=== PATIENT | female | born 1935 | race Caucasian/White ===

== ENCOUNTER → 2016-09-20 | Outpatient (CLI) | payer MEDICARE ==
--- NOTE | 2016-09-20 16:31 | CT ---
EXAMINATION TYPE: CT brain wo con DATE OF EXAM: 09/20/2016 3:10 PM COMPARISON: MRI brain 02/23/2015 INDICATION: Right sided headache DLP: 1072.3 mGycm, Automated exposure control for dose reduction was used. CONTRAST: None CT of the brain is performed utilizing 3 mm thick sections through the posterior fossa and 3 mm thick sections through the remaining calvarium. Study is performed within 24 hours of arrival to the hosp [facility]. No abnormal hyperdensity is present to suggest an acute intracranial hemorrhage. No mass lesion is evident. No acute infarcts are evident. Encephalomalacia changes and subcortical white matter changes in the r ight parietal lobe are stable from the MRI of 2014. Periventricular white matter changes are present which were also present on the MRI of 2014. Ventricles and sulci are prominent for the patient age, greater adjacent to the encephalomalacia and craniotomy. Paranasal sinuses and mastoid air cells within the [id number] are clear. IMPRESSIONS: 1. Postsurgical changes right parietal region. Findings appear stable from the prior MRI. No acute intracranial changes are evident. 2. Age-related atrophy with periventricular white matter changes.
== END | disposition home or self-care (01) ==
LOC: RADCTMAIN 14:38
PROVIDERS: ATTEND Family Medicine
DX: D49.6 Neoplasm of unspecified behavior of brain (principal); G31.1 Senile degeneration of brain, not elsewhere classified; R90.82 White matter disease, unspecified; Z98.890 Other specified postprocedural states
CPT/HCPCS: 70450

== ENCOUNTER → 2017-02-04 | Outpatient (CLI) | payer MEDICARE ==
--- NOTE | 2017-02-04 11:22 | XR ---
EXAMINATION TYPE: XR chest 2V DATE OF EXAM: 02/04/2017 COMPARISON: 06/08/2015 TECHNIQUE: PA and lateral views submitted. HISTORY: Cough FINDINGS: The lungs are clear and there is no pneumothorax, pleural effusion, or focal pneumonia. Atheroscler otic change aorta. No overt failure. IMPRESSION: 1. No acute process.
== END | disposition home or self-care (01) ==
LOC: RADXRMAIN 10:55
PROVIDERS: ATTEND Family Medicine
DX: R05 Cough (principal)
CPT/HCPCS: 71020

== ENCOUNTER → 2017-04-26 | Outpatient (CLI) | payer MEDICARE ==
--- NOTE | 2017-04-26 11:35 | XR ---
Lumbar spine INDICATION: Pain TECHNIQUE: Three-view lumbar spine FINDINGS: There 5 lumbar-type vertebral bodies. Mild scoliosis is present with convexity to the left. There is attempted sacralization of L5. There is loss of disc height posteriorly L4-5. Posterior L3-4 disc hei ght loss may be present. Vacuum disc phenomenon is present L2-3 with narrowing of the disc height. Va scular calcifications within the aorta IMPRESSIONS: 1. Degenerative disc changes
== END ==
LOC: RADXRMAIN 11:00
PROVIDERS: ATTEND Physician Assistant
DX: M51.36 Other intervertebral disc degeneration, lumbar region (principal)
CPT/HCPCS: 72100

== ENCOUNTER → 2017-12-18 | Outpatient (CLI) | payer MEDICARE ==
--- NOTE | 2017-12-18 21:17 | MR ---
EXAMINATION TYPE: MR brain wo/w con DATE OF EXAM: 12/18/2017 COMPARISON: 02/23/2015 HISTORY: Tumor removed, recheck CONTRAST: Performed utilizing 12 mL intravenous Gadavist gadolinium contrast. TECHNIQUE: Multiplanar, multiecho imaging on a 3.0 Paz magnet is performed through the brain. Stud y is performed within 24 hours of arrival to the hospital. The craniovertebral junction is normal. There is poor visualization of the pituitary. There may be an empty sella. This is unchanged from prior study. Diffusion-weighted imaging is performed. No abnormal hyperintensity is present to suggest an acute i ntracranial infarct or acute ischemic change. Postsurgical changes are in the right parietal lobe. There are some periventricular white matter hype rintensity likely on the basis of chronic white matter ischemic changes. White matter changes in the right parietal lobe are likely related to postsurgical change. There is some ischemic type white carrillo er change in the brainstem. Some subcortical white matter changes noted in the right temporal lobe an teriorly. Distribution appears unchanged. Ventricles and sulci are prominent for the patient age. No abnormal enhancement is evident. No enhancement at the surgery bed is identified. There is some mi ld ex vacuo effect noted on the right lateral ventricle. IMPRESSIONS: 1. Postsurgical changes right parietal lobe appears stable from prior study. No suspicious findings o f the surgery bed. 2. Periventricular white matter ischemic type changes.
== END | disposition home or self-care (01) ==
LOC: RADMRIMAIN 15:50
PROVIDERS: ATTEND Family Medicine
DX: D49.6 Neoplasm of unspecified behavior of brain (principal); R90.89 Other abnormal findings on diagnostic imaging of central nervous system; Z98.890 Other specified postprocedural states
CPT/HCPCS: 70553; A9581

== ENCOUNTER → 2018-03-07 | Outpatient (CLI) | payer MEDICARE ==
--- NOTE | 2018-03-07 08:51 | US ---
EXAMINATION TYPE: US duplex aorta DATE OF EXAM: 03/07/2018 COMPARISON: X ray spine 2014 CLINICAL HISTORY: I70.0 Atherosclerosis of the aorta; HT5'5, WT 275lbs EXAM MEASUREMENTS: Abdominal Aorta: Proximal: 2.5 cm A/P Mid: 1.8cm Transverse Distal: 1.6cm Transverse Bifurcation: 1.2cm A/P Right OPAL; 1.1cm A/P Left OPAL Hyperechoic intimal wall changes are noted throughout aorta and into common iliac arteries.. IMPRESSION: Visualized portions of the abdominal aorta demonstrate no evidence of abdominal aortic an eurysm. Atherosclerosis of the abdominal aorta and its visualized proximal branches appears moderate.
== END | disposition home or self-care (01) ==
LOC: RADUSWWP 07:32
PROVIDERS: ATTEND Family Medicine
DX: I70.0 Atherosclerosis of aorta (principal)
CPT/HCPCS: 93979

== ENCOUNTER → 2018-03-26 | Outpatient (CLI) | payer MEDICARE ==
--- NOTE | 2018-03-26 11:00 | XR ---
EXAMINATION TYPE: XR shoulder complete RT DATE OF EXAM: 03/26/2018 CLINICAL HISTORY: Right shoulder pain TECHNIQUE: Three views of the right shoulder are obtained. COMPARISON: None. FINDINGS: There is no acute fracture/dislocation evident in the right shoulder. The acromioclavicul ar and glenohumeral joint spaces demonstrate arthropathy. There is mild glenohumeral arthropathy with small inferior glenoid osteophyte, mild joint space narrowing, and subchondral cysts at the insertio n of the rotator cuff at the greater tuberosity. With regards to the acromioclavicular joint there ar e marginal osteophytes, capsular hypertrophy, and joint space narrowing. The visualized ribs are int act and unremarkable. IMPRESSION: There is no acute fracture or dislocation in the right shoulder. Moderate acromioclavicu lar arthropathy and mild glenohumeral arthropathy.
--- NOTE | 2018-03-26 12:37 | MR ---
EXAMINATION TYPE: MR shoulder RT wo con DATE OF EXAM: 03/26/2018 COMPARISON: X-ray 03/26/2018 HISTORY: Pain in right shoulder TECHNIQUE: Multiplanar, multisequence imaging of the right shoulder is performed without contrast. FINDINGS: There is hypertrophy and arthropathy of the AC joint. There is mass effect upon the supraspinatus ten don and muscle. There is a degree of atrophy involving the subscapularis, supraspinatus and infraspinatus muscles. There is diffuse abnormal signal and thickening of the distal margin of the supraspinatus tendon exte nding a length of 2 cm in AP dimension of 1.1 cm compatible with severe tendinopathy and partial tear . There is a small through thickness tear at the insertion involving the anterior fibers measuring ap proximately 7 mm. There is marked thickening and increased signal near the distal margin of the infraspinatus tendon co mpatible severe tendinosis and partial intrasubstance tear. Biceps tendon is well situated within the bicipital groove. Biceps tendon is intact within the rotato r interval and to the level the biceps anchor. There is mild narrowing of the glenohumeral joint but no evidence of erosive change or sizable joint effusion glenohumeral ligaments appear to be intact. Bony labrum intact. IMPRESSION: 1. Diffuse tendinopathy involving the distal margin of the supraspinatus and infraspinatus tendons co mpatible with severe tendinosis and partial intrasubstance tears. There is an 8 mm through thickness tear involving the anterior fibers of the supraspinatus tendon. No retraction. 2. AC joint arthropathy with impingement.
== END | disposition home or self-care (01) ==
LOC: RADMRIMAIN 10:21
PROVIDERS: ATTEND Midwife
DX: M25.511 Pain in right shoulder (principal); M12.811 Other specific arthropathies, not elsewhere classified, right shoulder

== ENCOUNTER → 2018-09-11 | Outpatient (CLI) | payer MEDICARE ==
--- NOTE | 2018-09-11 15:54 | US ---
EXAMINATION TYPE: US carotid duplex BILAT DATE OF EXAM: 09/11/2018 COMPARISON: NONE CLINICAL HISTORY: R55 Syncope. Syncope EXAM MEASUREMENTS: RIGHT: Peak Systolic Velocity (PSV) cm/sec ----- Right CCA: 85.3 ----- Right ICA: 102.9 ----- Right ECA: 104.0 ICA/CCA ratio: 1.2 RIGHT: End Diastole cm/sec ----- Right CCA: 12.8 ----- Right ICA: 23.7 ----- Right ECA: 10.6 LEFT: Peak Systolic Velocity (PSV) cm/sec ----- Left CCA: 90.9 ----- Left ICA: 103.0 ----- Left ECA: 149.6 ICA/CCA ratio: 1.1 LEFT: End Diastole cm/sec ----- Left CCA: 10.6 ----- Left ICA: 27.1 ----- Left ECA: 13.9 VERTEBRALS (direction of flow): Right Vertebral: Antegrade Left Vertebral: Antegrade Rhythm: Normal Mild plaque right bifurcation. Moderate plaque left bifurcation. Increased velocities left ECA indica ting approximately 50% stenosis Incidental finding: thyroid nodules right lobe with largest = 2.9cm IMPRESSION: 1. Mild degree of grayscale atheromatous plaquing with no sonographically evident hemodynamically sig nificant stenosis within either visualized carotid arterial system. 2. Incidentally noted 2.9 cm right thyroid nodule and smaller right thyroid nodules for which full ch aracterization with thyroid ultrasound is recommended. 2. Approximately 50% stenosis in the left external carotid artery. Criteria for Assigning % of Stenosis / Diameter reduction (Estimation based on the indirect measurements of the internal carotid artery velocities (ICA PSV). 1. Normal (no stenosis)=ICA PSV < 125 cm/s: ratio < 2.0: ICA EDV<40 cm/s. 2. Less than 50% stenosis=ICA PSV < 125 cm/s: ratio < 2.0: ICA EDV<40 cm/s. 3. 50 to 69% stenosis=ICA PSV of 125 to 230 cm/s: ration 2.0 ? 4.0: ICA EDV 40-100 cm/s. 4. Greater than 70% stenosis to near occlusion= ICA PSV > 230 cm/s: ratio > 4.0: ICA EDV > 100 cm/s. 5. Near occlusion= ICA PSV velocities may be low or undetectable: variable ratio and ICA EDV. 6. Total occlusion=unable to detect flow.
== END | disposition home or self-care (01) ==
LOC: RADUSWWP 14:47
PROVIDERS: ATTEND Family Medicine
DX: I65.22 Occlusion and stenosis of left carotid artery (principal); I67.2 Cerebral atherosclerosis
CPT/HCPCS: 93880

== ENCOUNTER → 2018-09-16 | Day surgery (SDC) | payer MEDICARE ==
[2018-09-11 13:27] VITALS: BMI 45.7
[~2018-09-16] MED LIST: SODIUM CHLORIDE 0.9% 1,000 ML IV SCH
[2018-09-16 10:29] VITALS: BP 133/67; PULSE 74; RESP 18; TEMP 98.3
--- NOTE | 2018-09-16 16:19 | P.PCN ---
Preoperative Diagnosis: Diagnosis Recurrent syncope Twelve-lead ECG shows Sinus rhythm normal MN narrow QRS nonspecific rigidity abnormalities with the 0.5 mm J-point elevation no delta waves normal QT interval Tilt table test for protocol Baseline blood pressure 140/59 mmHg Baseline heart rate 50 beats a minute Patient was tilted upright at an angle of 70 per protocol there was a drop in blood pressure during tilt table test which was progressive and once the patient 's blood pressure ranged 65 mmHg she became syncopal. 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
== END | disposition home or self-care (01) ==
LOC: CATHEP 09:48
PROVIDERS: ATTEND Internal Medicine Clinical Cardiac Electrophysiology
DX: I95.1 Orthostatic hypotension (principal); I10 Essential (primary) hypertension; E78.2 Mixed hyperlipidemia; R06.00 Dyspnea, unspecified; Z79.82 Long term (current) use of aspirin; Z72.0 Tobacco use; Z79.899 Other long term (current) drug therapy
CPT/HCPCS: 93660

== ENCOUNTER → 2018-09-30 | Outpatient (CLI) | payer MEDICARE ==
--- NOTE | 2018-09-30 15:27 | US ---
EXAMINATION TYPE: US thyroid st tissue head/neck DATE OF EXAM: 09/30/2018 COMPARISON: NONE CLINICAL HISTORY: E04.1 THYROID NODULE. GLAND SIZE: Right Lobe: 4.2 x 2.6 x 2.6 cm Overall Parenchyma: heterogenous Left Lobe: 5.2 x 1.7 x 1.7 cm Overall Parenchyma: heterogeneous Isthmus Thickness: 0.2 cm NODULES RIGHT: # of nodules measured on right: 2 1. 2.1 X 1.0 x 1.3 cm hypoechoic solid nodule at the upper pole with well-defined margins. This no dule is wider than tall and shows intranodular vascularity. Prior size: no prior 2. 2.5 X 1.9 x 2.5 cm echogenic solid nodule at the lower pole with well-defined margins. This nodu le is wider than tall and shows intranodular vascularity. Prior size: no prior LEFT: # of nodules measured on left: 0 ISTHMUS: # of nodules measured in the isthmus: 0 Bilateral neck scanned, no evidence of lymphadenopathy. Rt lobe shows no normal tissue, appears as multinodular goiter with two distinct nodules. IMPRESSION: 1. Enlarged nodules right lobe thyroid
== END | disposition home or self-care (01) ==
LOC: RADUSWWP 14:32
PROVIDERS: ATTEND Family Medicine
DX: E04.2 Nontoxic multinodular goiter (principal)
CPT/HCPCS: 76536

== ENCOUNTER 2018-11-21 08:37 | Day surgery (SDC) | payer MEDICARE ==
[2018-11-21 09:06] VITALS: RESP 18
[2018-11-21] MEDS ORDERED: ALPRAZolam 0.25 MG TAB PO STA (09:12)
[2018-11-21 10:21] VITALS: TEMP 97.7
[2018-11-21 10:57] VITALS: BP 147/67; PULSE 55
== END 2018-11-21 10:58 | disposition home or self-care (01) ==
LOC: RADPROMAIN 08:37
PROVIDERS: ATTEND Surgery Plastic and Reconstructive Surgery
DX: E04.1 Nontoxic single thyroid nodule (principal)
CPT/HCPCS: 10005; 10006; 88173; 88305

== ENCOUNTER → 2018-11-21 | Outpatient (CLI) | payer MEDICARE ==
[2018-11-21 11:55] LABS: Albumin 3.5 g/dL (3.80-4.90); Albumin/Globulin Ratio 1.59 (1.60-3.17); Anion Gap 9.9 mmol/L (4.00-12.00); Calcium 8.8 mg/dL (8.7-10.3); Carbon Dioxide 28.1 mmol/L (21.6-31.8); Globulin 2.2 g/dL (1.6-3.3); Total Bilirubin 0.3 mg/dL (0.2-1.2); Total Protein 5.7 g/dL (6.2-8.2)
[2018-11-21 12:03] LABS: T4, Free (Free Thyroxine) 1.2 ng/dL (0.80-1.80)
--- NOTE | 2018-11-21 12:28 | US ---
ULTRASOUND GUIDED FNA THYROID BIOPSY: CLINICAL HISTORY: Request for 2 right-sided thyroid nodule for FNA FINDINGS: The procedure was explained to the patient. The risks, complications, benefits and alternatives were discussed and any questions were answered. Informed consent was obtained. Patient was placed supin e on the ultrasound table and prepped and draped in the usual sterile fashion. Utilizing a 25 gauge needle, five passes were made into the requested 2 right-sided thyroid nodules. Patient was stable throughout the procedure. Pathology is pending. All elements of maximal barrier technique were utilized. IMPRESSION: 1. Successful ultrasound guided FNA thyroid biopsy.
[2018-11-21 15:20] LABS: Hemoglobin A1C 5.5 % (4.0-6.0)
== END ==
LOC: LABWHC1 08:07
PROVIDERS: ATTEND Family Medicine
DX: E04.1 Nontoxic single thyroid nodule (principal); R73.9 Hyperglycemia, unspecified
CPT/HCPCS: 10006; 36415; 80053; 83036; 84439; 84443; 84481

== ENCOUNTER → 2018-11-28 | Outpatient (CLI) | payer MEDICARE ==
--- NOTE | 2018-11-28 08:46 | US ---
EXAMINATION TYPE: US abdomen complete DATE OF EXAM: 11/28/2018 COMPARISON: NONE CLINICAL HISTORY: R10.13 EPIGASTRIC PAIN. EXAM MEASUREMENTS: Liver Length: 15.4 cm Gallbladder Wall: 0.2 cm CBD: 0.4 cm Spleen: 9.6 cm Right Kidney: 10.1 x 5.5 x 5.2 cm Left Kidney: 10.5 x 5.4 x 5.3 cm Pancreas: Partially Obscured by bowel gas. ? hypoechoic area body of pancreas = 0.8 x 0.7 x 0.4 cm Liver: No obvious masses seen. Partially obscured by bowel gas. There is poor penetration by the ult rasound beam. Gallbladder: No stones seen Evidence for sonographic Herrera's sign: No CBD: wnl Spleen: wnl Right Kidney: wnl Left Kidney: There is hypoechoic appearance, questionable decreased echogenicity of renal pelvis Upper IVC: wnl Abd Aorta: wnl Suboptimal exam overall due to large amounts of bowel gas. There is no ascites. IMPRESSION: Correlate for possible hepatic steatosis, hepatocellular disease. Question abnormal left renal pelvis. Questionable heterogeneity in the head of the pancreas. Contrast enhanced CT scan of th e abdomen and pelvis may be of benefit.
== END ==
LOC: RADUSWWP 07:43
PROVIDERS: ATTEND Family Medicine
DX: R10.13 Epigastric pain (principal); K52.1 Toxic gastroenteritis and colitis
CPT/HCPCS: 76700

== ENCOUNTER → 2018-12-11 | Outpatient (CLI) | payer MEDICARE ==
--- NOTE | 2018-12-11 14:27 | CT ---
EXAMINATION TYPE: CT abdomen w con DATE OF EXAM: 12/11/2018 COMPARISON: None HISTORY: disorders of kidney, ureters CT DLP: 1065.7 mGycm CONTRAST: CT scan of the abdomen is performed without Oral Contrast and with IV Contrast, patient injected wit h 50 mL of Isovue 300. FINDINGS: LUNG BASES-: No visible nodule. No infiltrate. LIVER/GB: Small gallstones identified. No wall thickening noted at this time. No space occupying h epatic lesion. Biliary tree is of normal caliber. PANCREAS: No inflammation. No distinct mass. SPLEEN: No splenic enlargement. No lesion seen. ADRENALS: No nodule. No thickening. KIDNEYS/BLADDER: No hydronephrosis. No nephrolithiasis. No distinct renal mass. Urinary bladder g rossly unremarkable. BOWEL: The appendix is not clearly visualized. There is wall thickening of the proximal transverse co leslie which may reflect colitis. No evidence for perforation or abscess. Mild small bowel ileus. LYMPH NODES: No greater than 1cm abdominal or pelvic lymph nodes are appreciated. AORTA: No significant abnormality. OSSEOUS STRUCTURES: Severe degenerative changes at L2-3. OTHER: No significant additional abnormality is seen. IMPRESSION: 1. There is wall thickening of the proximal transverse colon which may reflect colitis. 2. Cholelithiasis.
== END | disposition home or self-care (01) ==
LOC: RADCTMAIN 13:03
PROVIDERS: ATTEND Family Medicine
DX: K80.20 Calculus of gallbladder without cholecystitis without obstruction (principal); N28.89 Other specified disorders of kidney and ureter
CPT/HCPCS: 82565; 84520; 74160; 36415; Q9967

== ENCOUNTER → 2018-12-23 | Outpatient (CLI) | payer MEDICARE | END | disposition home or self-care (01) | LOC: LABWHC1 13:37 | PROVIDERS: ATTEND Internal Medicine Gastroenterology | DX: R19.7 Diarrhea, unspecified (principal) | CPT/HCPCS: 83630; 87045; 87046; 87324; 87328; 87329 ==

== ENCOUNTER 2019-01-16 10:17 | Day surgery (SDC) | payer MEDICARE ==
[2019-01-14 17:10] VITALS: BMI 40.4
[~2019-01-16 10:17] MED LIST changes: +LACTATED RINGERS 1,000 ML IV SCH; -SODIUM CHLORIDE 0.9% 1,000 ML IV SCH
[2019-01-16 10:41] VITALS: RESP 16; TEMP 97.1
[2019-01-16] MEDS ORDERED: PROPOFOL 10 MG/ML 20 ML VIAL IV ONE (10:58)
--- NOTE | 2019-01-16 11:17 | P.PCN ---
Date of Procedure: 01/16/19 Procedure(s) Performed: BRIEF HISTORY: Patient is a 83-year-old pleasant white female scheduled for an elective colonoscopy as a part of evaluation of chronic diarrhea for the last 5 weeks duration. She has bowel movements anywhere from 5-10 a day which are loose to watery in consistency but no blood and mucus in the stool. She was tried on Imodium and Bentyl with no help. Stool studies were negative. Computed tomography scan of abdomen revealed thickening of the left colon. Hence scheduled for colonoscopy to evaluate further. PROCEDURE PERFORMED: Colonoscopy random biopsies. PREOPERATIVE DIAGNOSIS: Chronic diarrhea 5 years duration. IV sedation per Anesthesia. PROCEDURE: After informed consent was obtained, the patient, was brought into the endoscopy unit. IV sedation was administered by Anesthesia under continuous monitoring. Digital rectal examination was normal. Initially the Olympus CF-160 flexible video colonoscope was then inserted in the rectum, gradually advanced into the cecum without any difficulty. Careful examination was performed as the scope was gradually being withdrawn. Ileocecal valve and the appendiceal orifice were visualized and appeared normal. Prep was excellent. Mucosa of the cecum, ascending colon, transverse colon, descending colon appeared normal. There was mild mucosal erythema and friability noted in the, sigmoid colon, and rectum and multiple biopsies were done from this area.. Retroflexion was performed in the rectum and no lesions were seen. The patient tolerated the procedure well. IMPRESSION: Mucosal erythema and friability noted in the proximal rectum and the sigmoid colon suspicious for inflammatory bowel disease Rest of the colon appeared normal RECOMMENDATIONS: Findings of this examination were discussed with the patient the lesser family. She was advised to follow up in office in one to 2 weeks to discuss the biopsy results..
[2019-01-16 11:48] VITALS: BP 123/74; PULSE 61
== END 2019-01-16 12:06 | disposition home or self-care (01) ==
LOC: ORWHC2ENDO 10:17
PROVIDERS: ATTEND Internal Medicine Gastroenterology
DX: K52.9 Noninfective gastroenteritis and colitis, unspecified (principal); K62.89 Other specified diseases of anus and rectum; H91.90 Unspecified hearing loss, unspecified ear; R41.3 Other amnesia; E07.9 Disorder of thyroid, unspecified; J44.9 Chronic obstructive pulmonary disease, unspecified; I10 Essential (primary) hypertension; E78.5 Hyperlipidemia, unspecified; Z79.82 Long term (current) use of aspirin; Z79.890 Hormone replacement therapy; Z79.899 Other long term (current) drug therapy
CPT/HCPCS: 88305; 45380; J2704

== ENCOUNTER 2019-01-22 00:19 | Inpatient (IN) | payer MEDICARE ==
[2019-01-22] MEDS ORDERED: SODIUM CHLORIDE 0.9% 1,000 ML IV STA (00:40)
--- NOTE | 2019-01-22 01:05 | ED ---
Weakness HPI - General Chief complaint: Syncope Stated complaint: Fall,weak Time Seen by Provider: 01/22/19 00:23 Source: patient, family, EMS, RN notes reviewed, old records reviewed Mode of arrival: EMS Limitations: no limitations - History of Present Illness Initial comments: This is an 80-year-old female the ER for evaluation. Patient coming in for evaluation regarding syncopal event. Syncopal event occurred while walking. Getting up from couch. Patient is no injury from fall denies headache chest pain shortness breath or abdominal pain no abdominal pain. Patient has history of syncope also has history of high blood pressure high cholesterol COPD. She does feel weak denies abdominal pain no fevers. MD Complaint: lack of energy, difficulty walking -: hour(s) Location: generalized Severity: severe Severity scale (1-10): 8 Consistency: constant Improves with: none Worsens with: movement Context: recent illness Associated Symptoms: loss of appetite, nausea/vomiting, syncope - Related Data Home Medications Medication Instructions Recorded Confirmed Aspirin 81 mg PO DAILY 07/09/14 01/22/19 Atorvastatin [Lipitor] 20 mg PO DAILY 07/09/14 01/22/19 Furosemide 40 mg PO DAILY 07/09/14 01/22/19 Levothyroxine Sodium [Synthroid] 25 mcg PO QAM 07/09/14 01/22/19 Cholecalciferol [Vitamin D3 (25 1,000 unit PO DAILY@1200 08/24/14 01/22/19 Mcg = 1000 Iu)] Donepezil [Aricept] 10 mg PO BID 09/11/18 01/22/19 Escitalopram [Lexapro] 20 mg PO SUWEFR 09/11/18 01/22/19 Artificial Tears-Hypromellose 1 drops BOTH EYES HS 10/31/18 01/22/19 [Artificial Tear Drops] Vit C/E/Zn/Coppr/Lutein/Zeaxan 2 cap PO DAILY 10/31/18 01/22/19 [Preservision Areds 2 Softgel] Albuterol Inhaler [Ventolin Hfa 1 - 2 puff INHALATION RT-Q6H PRN 01/14/19 Inhaler] Ensure 1 can PO BID 01/22/19 01/22/19 Previous Rx's Medication Instructions Recorded Dicyclomine [Bentyl] 20 mg PO QID PRN #0 01/24/19 Losartan Potassium [Cozaar] 50 mg PO DAILY #0 01/24/19 predniSONE 10 mg PO DAILY #60 tab 01/24/19 Allergies Allergy/AdvReac Type Severity Reaction Status Date / Time No Known Allergies Allergy Verified 01/22/19 00:53 Review of Systems ROS Statement: Those systems with pertinent positive or pertinent negative responses have been documented in the HPI. ROS Other: All systems not noted in ROS Statement are negative. 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 DIARRHEA X30 DAYS. History of Any Multi-Drug Resistant Organisms: None Reported Past Surgical History: Hysterectomy, Joint Replacement, Orthopedic Surgery Additional Past Surgical History / Comment(s): BENIGN BRAIN TUMOR, ESTELA C ATARACT REMOVAL, BILAT KNEE REPLACEMENT, Tilt table test. FINGER SURG. COLONOSCOPY. Past Anesthesia/Blood Transfusion Reactions: No Reported Reaction Past Psychological History: Depression Smoking Status: Former smoker Past Alcohol Use History: Occasional Past Drug Use History: None Reported - Past Family History Mother Family Medical History: Dementia General Exam Limitations: no limitations General appearance: alert, in no apparent distress Head exam: Present: atraumatic, normocephalic, normal inspection Eye exam: Present: normal appearance, PERRL, EOMI. Absent: scleral icterus, conjunctival injection, periorbital swelling ENT exam: Present: normal exam, mucous membranes moist Neck exam: Present: normal inspection. Absent: tenderness, meningismus, lymphadenopathy Respiratory exam: Present: normal lung sounds bilaterally. Absent: respiratory distress, wheezes, rales, rhonchi, stridor Cardiovascular Exam: Present: regular rate, normal rhythm, normal heart sounds. Absent: systolic murmur, diastolic murmur, rubs, gallop, clicks GI/Abdominal exam: Present: soft, normal bowel sounds. Absent: distended, tenderness, guarding, rebound, rigid Extremities exam: Present: normal inspection, full ROM, normal capillary refill. Absent: tenderness, pedal edema, joint swelling, calf tenderness Back exam: Present: normal inspection Neurological exam: Present: alert, oriented X3, CN II-XII intact Psychiatric exam: Present: normal affect, normal mood Skin exam: Present: warm, dry, intact, normal color. Absent: rash Course Vital Signs 01/22/19 01/22/19 01/22/19 00:51 05:23 05:30 Temperature 98.3 F Pulse Rate 68 85 Pulse Rate [ Left Sitting Pulse Oximetery ] Respiratory 18 10 L Rate Blood Pressure 112/50 137/60 Blood Pressure [Left Arm Sitting] O2 Sat by Pulse 98 94 L 92 L Oximetry 01/22/19 01/22/19 01/22/19 05:40 05:50 07:42 Temperature Pulse Rate 63 77 Pulse Rate [ Left Sitting Pulse Oximetery ] Respiratory 54 H 11 L 18 Rate Blood Pressure 137/60 137/60 118/53 Blood Pressure [Left Arm Sitting] O2 Sat by Pulse 96 Oximetry 01/22/19 01/22/19 14:17 16:00 Temperature 98 F 98.1 F Pulse Rate 70 Pulse Rate [ 73 Left Sitting Pulse Oximetery ] Respiratory 18 18 Rate Blood Pressure 120/59 Blood Pressure 121/71 [Left Arm Sitting] O2 Sat by Pulse 94 L 93 L Oximetry - Reevaluation(s) Reevaluation #1: Medical record is reviewed No syncopal episodes here in the ER, patient still denies headache chest pain shortness breath or abdominal pain EKG Findings - EKG Comments: EKG Findings:: EKG shows sinus rhythm rate of 65, MS 1:30, QRS 74, QTC 490 Medical Decision Making - Medical Decision Making 83 female the ER status post syncopal event positive urinary tract infection dehydration will admit for treatment of UTI and rehydration - Lab Data Result diagrams: 01/24/19 07:50 01/24/19 07:50 Lab Results 01/22/19 01/22/19 01/22/19 Range/Units 02:00 02:00 02:00 WBC 15.3 H (3.8-10.6) k/uL RBC 4.23 (3.80-5.40) m/uL Hgb 12.3 (11.4-16.0) gm/dL Hct 37.5 (34.0-46.0) % MCV 88.6 (80.0-100.0) fL MCH 29.0 (25.0-35.0) pg MCHC 32.8 (31.0-37.0) g/dL RDW 14.9 (11.5-15.5) % Plt Count 255 (150-450) k/uL Neutrophils % 82 % Lymphocytes % 11 % Monocytes % 5 % Eosinophils % 0 % Basophils % 0 % Neutrophils # 12.5 H (1.3-7.7) k/uL Lymphocytes # 1.7 (1.0-4.8) k/uL Monocytes # 0.8 (0-1.0) k/uL Eosinophils # 0.1 (0-0.7) k/uL Basophils # 0.0 (0-0.2) k/uL PT (9.0-12.0) sec INR (<1.2) APTT (22.0-30.0) sec Sodium 134 L (137-145) mmol/L Potassium 3.1 L (3.5-5.1) mmol/L Chloride 100 (98-107) mmol/L Carbon Dioxide 26 (22-30) mmol/L Anion Gap 8 mmol/L BUN 18 H (7-17) mg/dL Creatinine 1.41 H (0.52-1.04) mg/dL Est GFR (CKD-EPI)AfAm 40 (>60 ml/min/1.73 sqM) Est GFR (CKD-EPI)NonAf 35 (>60 ml/min/1.73 sqM) Glucose 107 H (74-99) mg/dL Plasma Lactic Acid Darrel 1.4 (0.7-2.0) mmol/L Calcium 7.8 L (8.4-10.2) mg/dL Phosphorus 2.8 (2.5-4.5) mg/dL Magnesium 1.3 L (1.6-2.3) mg/dL Total Bilirubin 0.8 (0.2-1.3) mg/dL AST 24 (14-36) U/L ALT 14 (9-52) U/L Alkaline Phosphatase 72 (38-126) U/L Troponin I (0.000-0.034) ng/mL Total Protein 5.8 L (6.3-8.2) g/dL Albumin 2.8 L (3.5-5.0) g/dL TSH 1.790 (0.465-4.680) mIU/L Urine Color Urine Appearance (Clear) Urine pH (5.0-8.0) Ur Specific [place] (1.001-1.035) Urine Protein (Negative) Urine Glucose (UA) (Negative) Urine Ketones (Negative) Urine Blood (Negative) Urine Nitrite (Negative) Urine Bilirubin (Negative) Urine Urobilinogen (<2.0) mg/dL Ur Leukocyte Esterase (Negative) Urine RBC (0-5) /hpf Urine WBC (0-5) /hpf Urine Bacteria (None) /hpf Hyaline Casts (0-2) /lpf Urine Mucus (None) /hpf 01/22/19 01/22/19 01/22/19 Range/Units 02:00 02:00 05:35 WBC (3.8-10.6) k/uL RBC (3.80-5.40) m/uL Hgb (11.4-16.0) gm/dL Hct (34.0-46.0) % MCV (80.0-100.0) fL MCH (25.0-35.0) pg MCHC (31.0-37.0) g/dL RDW (11.5-15.5) % Plt Count (150-450) k/uL Neutrophils % % Lymphocytes % % Monocytes % % Eosinophils % % Basophils % % Neutrophils # (1.3-7.7) k/uL Lymphocytes # (1.0-4.8) k/uL Monocytes # (0-1.0) k/uL Eosinophils # (0-0.7) k/uL Basophils # (0-0.2) k/uL PT 10.3 (9.0-12.0) sec INR 1.0 (<1.2) APTT 24.3 (22.0-30.0) sec Sodium (137-145) mmol/L Potassium (3.5-5.1) mmol/L Chloride (98-107) mmol/L Carbon Dioxide (22-30) mmol/L Anion Gap mmol/L BUN (7-17) mg/dL Creatinine (0.52-1.04) mg/dL Est GFR (CKD-EPI)AfAm (>60 ml/min/1.73 sqM) Est GFR (CKD-EPI)NonAf (>60 ml/min/1.73 sqM) Glucose (74-99) mg/dL Plasma Lactic Acid Darrel (0.7-2.0) mmol/L Calcium (8.4-10.2) mg/dL Phosphorus (2.5-4.5) mg/dL Magnesium (1.6-2.3) mg/dL Total Bilirubin (0.2-1.3) mg/dL AST (14-36) U/L ALT (9-52) U/L Alkaline Phosphatase (38-126) U/L Troponin I 0.027 (0.000-0.034) ng/mL Total Protein (6.3-8.2) g/dL Albumin (3.5-5.0) g/dL TSH (0.465-4.680) mIU/L Urine Color Yellow Urine Appearance Clear (Clear) Urine pH 5.5 (5.0-8.0) Ur Specific [place] 1.009 (1.001-1.035) Urine Protein Negative (Negative) Urine Glucose (UA) Negative (Negative) Urine Ketones Negative (Negative) Urine Blood Negative (Negative) Urine Nitrite Negative (Negative) Urine Bilirubin Negative (Negative) Urine Urobilinogen <2.0 (<2.0) mg/dL Ur Leukocyte Esterase Small H (Negative) Urine RBC <1 (0-5) /hpf Urine WBC 8 H (0-5) /hpf Urine Bacteria Few H (None) /hpf Hyaline Casts 4 H (0-2) /lpf Urine Mucus Occasional H (None) /hpf 01/22/19 01/22/19 Range/Units 07:43 14:20 WBC (3.8-10.6) k/uL RBC (3.80-5.40) m/uL Hgb (11.4-16.0) gm/dL Hct (34.0-46.0) % MCV (80.0-100.0) fL MCH (25.0-35.0) pg MCHC (31.0-37.0) g/dL RDW (11.5-15.5) % Plt Count (150-450) k/uL Neutrophils % % Lymphocytes % % Monocytes % % Eosinophils % % Basophils % % Neutrophils # (1.3-7.7) k/uL Lymphocytes # (1.0-4.8) k/uL Monocytes # (0-1.0) k/uL Eosinophils # (0-0.7) k/uL Basophils # (0-0.2) k/uL PT (9.0-12.0) sec INR (<1.2) APTT (22.0-30.0) sec Sodium (137-145) mmol/L Potassium (3.5-5.1) mmol/L Chloride (98-107) mmol/L Carbon Dioxide (22-30) mmol/L Anion Gap mmol/L BUN (7-17) mg/dL Creatinine (0.52-1.04) mg/dL Est GFR (CKD-EPI)AfAm (>60 ml/min/1.73 sqM) Est GFR (CKD-EPI)NonAf (>60 ml/min/1.73 sqM) Glucose (74-99) mg/dL Plasma Lactic Acid Darrel (0.7-2.0) mmol/L Calcium (8.4-10.2) mg/dL Phosphorus (2.5-4.5) mg/dL Magnesium (1.6-2.3) mg/dL Total Bilirubin (0.2-1.3) mg/dL AST (14-36) U/L ALT (9-52) U/L Alkaline Phosphatase (38-126) U/L Troponin I 0.027 0.029 (0.000-0.034) ng/mL Total Protein (6.3-8.2) g/dL Albumin (3.5-5.0) g/dL TSH (0.465-4.680) mIU/L Urine Color Urine Appearance (Clear) Urine pH (5.0-8.0) Ur Specific [place] (1.001-1.035) Urine Protein (Negative) Urine Glucose (UA) (Negative) Urine Ketones (Negative) Urine Blood (Negative) Urine Nitrite (Negative) Urine Bilirubin (Negative) Urine Urobilinogen (<2.0) mg/dL Ur Leukocyte Esterase (Negative) Urine RBC (0-5) /hpf Urine WBC (0-5) /hpf Urine Bacteria (None) /hpf Hyaline Casts (0-2) /lpf Urine Mucus (None) /hpf - Radiology Data Radiology results: report reviewed (CT brain C-spine negative for traumatic injury x-ray pelvis and chest negative for traumatic injury), image reviewed Disposition Clinical Impression: Vasovagal syncope, UTI (urinary tract infection) Disposition: ADMITTED IP TO THIS HOSP Condition: Fair Is patient prescribed a controlled substance at d/c from ED?: No
--- NOTE | 2019-01-22 02:22 | XR ---
EXAM: XR Chest, 1 View CLINICAL HISTORY: ITS.REASON XR Reason: Pain TECHNIQUE: Frontal view of the chest. COMPARISON: Chest radiograph on 02/04/2017 FINDINGS: Hardware: None. Lungs/pleura: Normal. No focal consolidation. No pleural effusion or pneumothorax. Heart/mediastinum: Normal. No cardiomegaly. Soft tissues: Unremarkable. Bones: No acute fracture. Degenerative changes of the acromioclavicular joints. Upper abdomen: Normal. IMPRESSION: No focal consolidation.
--- NOTE | 2019-01-22 02:24 | XR ---
EXAM: XR Pelvis, 1 or 2 Views CLINICAL HISTORY: ITS.REASON XR Reason: Pain TECHNIQUE: Frontal view of the pelvis. COMPARISON: None FINDINGS: Bones/joints: No displaced fracture or dislocation identified. Degenerative changes of the visualized lower lumbar spine. Mild degenerative changes of the hips. Osteopenia. Soft tissues: Presumed phleboliths in the right pelvis. IMPRESSION: No displaced fracture or dislocation identified. If there is persistent concern for acute injury, consider further evaluation with CT or MRI.
[2019-01-22 02:32] LABS: Basophils % (A) 0 %; Eosinophils # (A) 0.1 k/uL (0-0.7); Eosinophils % (A) 0 %; HCT 37.5 % (34.0-46.0); HGB 12.3 gm/dL (11.4-16.0); Lymphocytes # (A) 1.7 k/uL (1.0-4.8); Lymphocytes % (A) 11 %; MCHC 32.8 g/dL (31.0-37.0); MCV 88.6 fL (80.0-100.0); Mean Platelet Volume 7.1; Monocytes # (A) 0.8 k/uL (0-1.0); Monocytes % (A) 5 %; Neutrophils # (A) 12.5 k/uL (1.3-7.7); Neutrophils % (A) 82 %; Platelet Count 255 k/uL (150-450); RBC 4.23 m/uL (3.80-5.40); RDW 14.9 % (11.5-15.5); WBC 15.3 k/uL (3.8-10.6)
[2019-01-22 02:42] LABS: Partial Thromboplastin Time 24.3 sec (22.0-30.0); Prothrombin Time 10.3 sec (9.0-12.0)
--- NOTE | 2019-01-22 02:44 | CT ---
EXAM: CT Head Without Intravenous Contrast CLINICAL HISTORY: ITS.REASON CT Reason: pain TECHNIQUE: Axial computed tomography images of the head/brain without intravenous contrast. CTDI is 45.2 mGy and DLP is 1075 mGy-cm. This CT exam was performed using one or more of the following dose reduction techniques: automated exposure control, adjustment of the mA and/or kV according to patient size, and/or use of iterative reconstruction technique. COMPARISON: CT head on 09/20/2016. MRI brain on 12/18/2017. FINDINGS: Brain: No acute infarct or hemorrhage identified. No extra-axial fluid collection. No mass effect or midline shift. Stable areas of hypoattenuation in the supratentorial white matter likely represent chronic small vessel ischemic changes. Stable encephalomalacia in the right parietal lobe. Ventricles and sulci: Prominence of the ventricles and sulci is likely secondary to cerebral volume loss. Skull: Right craniotomy changes. No bony lesion or fracture. Subcutaneous tissues: Normal. Sinuses: Small polyps versus mucous retention cysts in the right maxillary sinus. Secretions and small amount of fluid in the left sphenoid sinus. Mild mucosal thickening in the left maxillary sinus. Orbits: Bilateral lens implants. Other: Atherosclerotic calcifications in the intracranial vasculature. IMPRESSION: 1. No acute intracranial abnormality. 2. Stable chronic small vessel ischemic changes and cerebral volume loss. Stable encephalomalacia in the right parietal lobe. EXAM: CT Cervical Spine Without Intravenous Contrast CLINICAL HISTORY: ITS.REASON CT Reason: pain TECHNIQUE: Axial computed tomography images of the cervical spine without intravenous contrast. CTDI is 12.2 mGy and DLP is 365.3 mGy-cm. This CT exam was performed using one or more of the following dose reduction techniques: automated exposure control, adjustment of the mA and/or kV according to patient size, and/or use of iterative reconstruction technique. COMPARISON: None FINDINGS: Bones: Osteopenia. No acute fracture or bony lesion. Disc spaces: Degenerative changes, most prominent at C4-5 and C5-6. Soft tissues: Normal. Other: Secretions and small amount of fluid in the left sphenoid sinus. Hyperostosis of the sinus wall suggests chronic sinusitis. Atherosclerotic changes of the vasculature.. Enlarged, heterogeneous right thyroid lobe could be further evaluated with nonemergent dedicated ultrasound if clinically indicated. IMPRESSION: No acute traumatic abnormality.
[2019-01-22 02:56] LABS: Albumin 2.8 g/dL (3.5-5.0); Calcium 7.8 mg/dL (8.4-10.2); Magnesium 1.3 mg/dL (1.6-2.3); Phosphorus 2.8 mg/dL (2.5-4.5); Potassium 3.1 mmol/L (3.5-5.1); Total Bilirubin 0.8 mg/dL (0.2-1.3); Total Protein 5.8 g/dL (6.3-8.2)
[2019-01-22 06:05] LABS: Appearance,Urine Clear (Clear); Bacteria,Urine Few /hpf; Bilirubin,Urine Negative (Negative); Blood,Urine Negative (Negative); Color,Urine Yellow; Glucose,Urine (UA) Negative (Negative); Hyaline Casts,Urine 4 /lpf (0-2); Ketones,Urine Negative (Negative); Leukocyte Esterase,Urine Small (Negative); Mucus,Urine Occasional /hpf; Nitrite,Urine Negative (Negative); PH, Urine 5.5 (5.0-8.0); Protein,Urine Negative (Negative); RBC,Urine <1 /hpf (0-5); Specific Gravity,Urine 1.009 (1.001-1.035); Urobilinogen,Urine <2.0 mg/dL (<2.0); WBC,Urine 8 /hpf (0-5)
[2019-01-22] MEDS: SODIUM CHLORIDE 0.9% 1,000 ML IV SCH ×2 (06:58→22:27)
--- NOTE | 2019-01-22 12:27 | P.HPIM ---
History of Present Illness 83-year-old female was brought to the emergency room by family with report of having of syncopal episode. States patient was walking to the bathroom became diaphoretic and fell to the floor. Daughter states that for 1 month patient's been anorexic having intermittent sweats weakness and confusion. Patient's been seeing Dr. 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 DIARRHEA X30 DAYS. History of Any Multi-Drug Resistant Organisms: None Reported Past Surgical History: Hysterectomy, Joint Replacement, Orthopedic Surgery Additional Past Surgical History / Comment(s): BENIGN BRAIN TUMOR, ESTELA CATARACT REMOVAL, BILAT KNEE REPLACEMENT, Tilt table test. FINGER SURG. COLONOSCOPY. Past Anesthesia/Blood Transfusion Reactions: No Reported Reaction Past Psychological History: Depression Smoking Status: Former smoker Past Alcohol Use History: Occasional Past Drug Use History: None Reported - Past Family History Mother Family Medical History: Dementia Medications and Allergies Home Medications Medication Instructions Recorded Confirmed Type Aspirin 81 mg PO DAILY 07/09/14 01/22/19 History Atorvastatin [Lipitor] 20 mg PO DAILY 07/09/14 01/22/19 History Furosemide 40 mg PO DAILY 07/09/14 01/22/19 History Levothyroxine Sodium [Synthroid] 25 mcg PO QAM 07/09/14 01/22/19 History NIFEdipine [Nifedipine ER] 90 mg PO QAM 07/09/14 01/22/19 History Cholecalciferol [Vitamin D3] 1,000 unit PO DAILY@1200 08/24/14 01/22/19 History Donepezil [Aricept] 10 mg PO BID 09/11/18 01/22/19 History Escitalopram [Lexapro] 20 mg PO SUWEFR 09/11/18 01/22/19 History Losartan Potassium [Cozaar] 100 mg PO DAILY 09/11/18 01/22/19 History Artificial Tears-Hypromellose 1 drops BOTH EYES HS 10/31/18 01/22/19 History [Artificial Tear Drops] Vit C/E/Zn/Coppr/Lutein/Zeaxan 2 cap PO DAILY 10/31/18 01/22/19 History [Preservision Areds 2 Softgel] Albuterol Inhaler [Ventolin Hfa 1 - 2 puff INHALATION RT-Q6H PRN 01/14/19 01/22/19 History Inhaler] Dicyclomine [Bentyl] 20 mg PO QID 01/22/19 01/22/19 History Ensure 1 can PO BID 01/22/19 01/22/19 History Allergies Allergy/AdvReac Type Severity Reaction Status Date / Time No Known Allergies Allergy Verified 01/22/19 00:53 Physical Exam Vitals: Vital Signs Temp Pulse Resp BP Pulse Ox 01/22/19 07:42 77 18 118/53 96 01/22/19 05:50 63 11 L 137/60 01/22/19 05:40 54 H 137/60 01/22/19 05:30 85 10 L 137/60 92 L 01/22/19 05:23 94 L 01/22/19 00:51 98.3 F 68 18 112/50 98 Intake and Output 01/21/19 01/22/19 01/22/19 22:59 06:59 14:59 Other: Weight 104.326 kg - Constitutional General appearance: mild distress, obese - EENT Eyes: PERRLA ENT: hard of hearing Ears: bilateral: normal - Neck Neck: normal ROM - Respiratory Respiratory: bilateral: CTA - Cardiovascular Rhythm: regular - Gastrointestinal General gastrointestinal: normal bowel sounds, soft - Integumentary Integumentary: normal - Neurologic Neurologic: CNII-XII intact - Musculoskeletal Musculoskeletal: generalized weakness - Psychiatric Patient awake and alert pleasantly confused Results CBC & Chem 7: 01/22/19 02:00 01/22/19 02:00 Labs: Abnormal Lab Results - Last 24 Hours (Table) 01/22/19 01/22/19 01/22/19 Range/Units 02:00 02:00 05:35 WBC 15.3 H (3.8-10.6) k/uL Neutrophils # 12.5 H (1.3-7.7) k/uL Sodium 134 L (137-145) mmol/L Potassium 3.1 L (3.5-5.1) mmol/L BUN 18 H (7-17) mg/dL Creatinine 1.41 H (0.52-1.04) mg/dL Glucose 107 H (74-99) mg/dL Calcium 7.8 L (8.4-10.2) mg/dL Magnesium 1.3 L (1.6-2.3) mg/dL Total Protein 5.8 L (6.3-8.2) g/dL Albumin 2.8 L (3.5-5.0) g/dL Ur Leukocyte Esterase Small H (Negative) Urine WBC 8 H (0-5) /hpf Urine Bacteria Few H (None) /hpf Hyaline Casts 4 H (0-2) /lpf Urine Mucus Occasional H (None) /hpf Microbiology - Last 24 Hours (Table) 01/22/19 05:35 Urine Culture - Preliminary Urine,Catheterized Chest x-ray: report reviewed CT Scan - head: report reviewed Assessment and Plan Plan: Assessment Vasovagal syncope Urinary tract infection Malnutrition moderate calorie 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 Juan regarding diarrhea and anorexia Continue Rocephin awaiting cultures on urinary tract infection
[2019-01-22] MEDS ORDERED: ALBUTEROL NEBULIZED 2.5 MG/3 ML INHALATION PRN (16:18)
[2019-01-22] MEDS: DICYCLOMINE 20 MG TAB PO SCH ×2 (21:45→22:28)
[2019-01-22] MEDS: ARTIFICIAL TEARS-HYPROMELLOSE DROPS 15 ML BTL BOTH EYES SCH (21:45)
[2019-01-22] MEDS: DONEPEZIL 10 MG TAB PO SCH (21:45)
[2019-01-23] MEDS: SODIUM CHLORIDE 0.9% 1,000 ML IV SCH (03:42)
[2019-01-23] MEDS: LEVOTHYROXINE 25 MCG TAB PO SCH (06:22)
[2019-01-23] MEDS ORDERED: ESCITALOPRAM 20 MG TAB PO SCH (09:00)
[2019-01-23] MEDS ORDERED: LOSARTAN 50 MG TAB PO SCH (09:00)
[2019-01-23] MEDS ORDERED: NIFEdipine XL 90 MG TAB.ER.24 PO SCH (09:00)
[2019-01-23] MEDS ORDERED: FUROSEMIDE 40 MG TAB PO SCH (09:00)
[2019-01-23] MEDS: VIT A,C & E-LUTEIN-MINERALS 1 EACH TAB PO SCH (09:13)
[2019-01-23] MEDS: DICYCLOMINE 20 MG TAB PO SCH ×4 (09:13→20:31)
[2019-01-23] MEDS: DONEPEZIL 10 MG TAB PO SCH ×2 (09:13→20:31)
[2019-01-23] MEDS: ATORVASTATIN 20 MG TAB PO SCH (09:14)
[2019-01-23 11:43] LABS: Calcium 7.5 mg/dL (8.4-10.2); Potassium 2.9 mmol/L (3.5-5.1)
[2019-01-23] MEDS: CHOLECALCIFEROL 1,000 UNIT TAB PO SCH (12:12)
--- NOTE | 2019-01-23 13:30 | P.PN ---
Subjective 83-year-old pleasant female was admitted for syncopal episode probably secondary to intravascular depletion patient was having chronic diarrhea. Patient's creatinine is 1.4 patient is hyponatremic Lasix will be disc continued. Patient baseline creatinine appears to be around 1.4 though. Patient will be continued on IV fluids repeat the basic metabolic profile tomorrow I'm expecting some improvement in serum creatinine. Patient does have chronic kidney disease stage III. Patient's angiotensin receptor valerio will be held as well. Patient does have history of chronic diarrhea had 2 episodes today C. diff will be obtained if C. diff is negative patient will be started on symptomatically treatment for diarrhea. I do not believe patient has UTI patient has asymptomatic bacteriuria antibiotics will be his continued Constitutional: Denied any fatigue denied any fever. Cardio vascular: denied any chest pain, palpitations Gastrointestinal denied any nausea vomiting Pulmonary: Denied any shortness of breath cough Neurologic denied any new focal deficits All inpatient medications were reviewed and appropriate changes in these medi cations as dictated in the interval history and assessment and plan. Objective - Vital Signs Vital signs: Vital Signs Temp 97.8 F 01/23/19 08:00 Pulse 76 01/23/19 11:09 Resp 17 01/23/19 11:09 BP 113/77 01/23/19 11:09 Pulse Ox 94 L 01/23/19 11:09 Intake & Output 01/22/19 01/23/19 01/23/19 18:59 06:59 18:59 Intake Total 300 300 Balance 300 300 Intake: Oral 300 300 Other: Voiding Method Toilet Toilet Toilet # Voids 1 - Exam PHYSICAL EXAMINATION: GENERAL: The patient is alert and oriented x3, not in any acute distress. Obese HEENT: Pupils are round and equally reacting to light. EOMI. No scleral icterus. No conjunctival pallor. Normocephalic, atraumatic. No pharyngeal erythema. No thyromegaly. CARDIOVASCULAR: S1 and S2 present. No murmurs, rubs, or gallops. PULMONARY: Chest is clear to auscultation, no wheezing or crackles. ABDOMEN: Soft, nontender, nondistended, normoactive bowel sounds. No palpable organomegaly. MUSCULOSKELETAL: No joint swelling or deformity. EXTREMITIES: No cyanosis, clubbing, or pedal edema. NEUROLOGICAL: Gross neurological examination did not reveal any focal deficits. SKIN: No rashes. - Labs CBC & Chem 7: 01/22/19 02:00 01/23/19 11:07 Labs: Abnormal Lab Results - Last 24 Hours (Table) 01/23/19 Range/Units 11:07 Potassium 2.9 L (3.5-5.1) mmol/L Glucose 114 H (74-99) mg/dL Calcium 7.5 L (8.4-10.2) mg/dL Microbiology - Last 24 Hours (Table) 01/22/19 05:35 Urine Culture - Final Urine,Catheterized Assessment and Plan Plan: 5 acute on chronic diarrhea: Etiology for daily is probably viral gastroenteritis patient will be started on IV fluids and hold off on diuretic therapy and the losartan. Repeat basic metabolic profile tomorrow -Chronic diarrhea further evaluation as outpatient if C. diff is negative pa tient will be started on Bentyl -Asymptomatic bacteriuria will not require any antibiotics for this Rocephin will be discontinued. -Hypokalemia and hypomagnesemia these will be supplemented hypokalemia secondary to natriuresis and diuretics -Hyperlipidemia -Hypertension -Hypothyroidism will need the pharmacologic GI and DVT prophylaxis.
[2019-01-23] MEDS ORDERED: Potassium Replacement Protocol 1 EACH MISC MISCELLANE PRN ×2 (13:34→21:24)
[2019-01-23] MEDS: POTASSIUM CHLORIDE ER 20 MEQ TAB.ER PO SCH ×5 (13:52→23:37)
[2019-01-23] MEDS: MAGNESIUM SULFATE-D5W PMX 1 GM in DEXTROSE/WATER 1 100ML.BAG IVPB SCH ×2 (13:52→16:44)
[2019-01-23 16:11] VITALS: BMI 38.2
[2019-01-23] MEDS: methylPREDNISolone SOD SUCCI 40 MG/ML 1 ML VIAL IV SCH ×2 (16:44→23:37)
[2019-01-23] MEDS: ARTIFICIAL TEARS-HYPROMELLOSE DROPS 15 ML BTL BOTH EYES SCH (20:30)
[2019-01-23] MEDS: HEPARIN SODIUM,PORCINE 5,000 UNIT/ML 1 ML VIAL SQ SCH (20:31)
--- NOTE | 2019-01-23 20:40 | P.CONS ---
History of Present Illness - Reason for Consult Consult date: 01/23/19 Diarrhea Requesting physician: Brady Harper - Chief Complaint Syncope - History of Present Illness 83-year-old with multiple medical comorbidities including memory impairment, COPD, hyperlipidemia and thyroid disease who presented to the hospital with reports of a syncopal episode. The patient had been feeling increasingly weak and fatigued prior to presentation. She reports decreased oral intake and difficulty walking. The patient has been seen in evaluation by gastroenterology in the outpatient setting with workup of chronic diarrhea which is lasted over 5 weeks in duration. Over this time the patient has been having 5-10 loose nonbloody bowel movements daily. She was tried on Imodium and Bentyl therapy with no improvement. She recently underwent a colonoscopy on 01/16/[address] Argueta with findings of mucosal erythema and friability in the proximal rectum and sigmoid with biopsies taken and significant for mild active colitis in the ascending colon, descending colon and sigmoid colon and chronic active colitis in the rectum. The patient was scheduled to follow up in the gastroenterology clinic yesterday but failed to present due to her symptoms. Currently she is feeling somewhat improved after IV hydration. Review of Systems REVIEW OF SYSTEMS: CONSTITUTIONAL: Denies any fevers, chills, does report weight change with loss of weight in association with decreased oral intake as well as fatigue. CARDIOVASCULAR: Denies any chest pain, palpitations high or low blood pressures RESPIRATORY: Denies any shortness of breath, hemoptysis or cough. GENITOURINARY: No dysuria or hematuria. MUSCULOSKELETAL: No weakness reported. SKIN: Denies any new rashes or lesions, jaundice or pallor. PSYCHIATRIC: Denies any depression or anxiety. NEUROLOGY: Denies headache, denies any new focal deficits, the patient reports syncopal episode prior to presentation. EARS/NOSE/THROAT: No recent hearing change, congestion, nasal discharge or sore throat. EYES: No pain in eyes, discharge or change in vision. GASTROINTESTINAL: As per HPI. 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 DIARRHEA X31 DAYS. hypothyroid. History of Any Multi-Drug Resistant Organisms: None Reported Past Surgical History: Hysterectomy, Joint Replacement, Orthopedic Surgery Additional Past Surgical History / Comment(s): BENIGN BRAIN TUMOR, ESTELA CATARACT REMOVAL, BILAT KNEE REPLACEMENT, Tilt table test. FINGER SURG. COLONOSCOPY. Past Anesthesia/Blood Transfusion Reactions: No Reported Reaction Past Psychological History: Depression Additional Psychological History / Comment(s): memory impairment Smoking Status: Former smoker Past Alcohol Use History: Occasional Additional Past Alcohol Use History / Comment(s): Social smoker many years ago, none since 1978 Past Drug Use History: None Reported - Past Family History Mother Family Medical History: Dementia Medications and Allergies Home Medications Medication Instructions Recorded Confirmed Type Aspirin 81 mg PO DAILY 07/09/14 01/22/19 History Atorvastatin [Lipitor] 20 mg PO DAILY 07/09/14 01/22/19 History Furosemide 40 mg PO DAILY 07/09/14 01/22/19 History Levothyroxine Sodium [Synthroid] 25 mcg PO QAM 07/09/14 01/22/19 History NIFEdipine [Nifedipine ER] 90 mg PO QAM 07/09/14 01/22/19 History Cholecalciferol [Vitamin D3] 1,000 unit PO DAILY@1200 08/24/14 01/22/19 History Donepezil [Aricept] 10 mg PO BID 09/11/18 01/22/19 History Escitalopram [Lexapro] 20 mg PO SUWEFR 09/11/18 01/22/19 History Losartan Potassium [Cozaar] 100 mg PO DAILY 09/11/18 01/22/19 History Artificial Tears-Hypromellose 1 drops BOTH EYES HS 10/31/18 01/22/19 History [Artificial Tear Drops] Vit C/E/Zn/Coppr/Lutein/Zeaxan 2 cap PO DAILY 10/31/18 01/22/19 History [Preservision Areds 2 Softgel] Albuterol Inhaler [Ventolin Hfa 1 - 2 puff INHALATION RT-Q6H PRN 01/14/19 01/22/19 History Inhaler] Dicyclomine [Bentyl] 20 mg PO QID 01/22/19 01/22/19 History Ensure 1 can PO BID 01/22/19 01/22/19 History Allergies Allergy/AdvReac Type Severity Reaction Status Date / Time No Known Allergies Allergy Verified 01/22/19 00:53 Physical Exam Vitals: Vital Signs Temp Pulse Pulse Resp BP Pulse Ox 01/23/19 11:09 76 17 113/77 94 L 01/23/19 08:00 97.8 F 77 15 107/58 97 01/23/19 07:18 75 16 01/23/19 07:04 75 16 95 01/23/19 03:52 18 01/23/19 03:38 98.2 F 75 18 134/63 93 L 01/23/19 00:00 16 01/22/19 23:47 98.4 F 65 16 137/66 92 L 01/22/19 20:55 93 L 01/22/19 20:00 17 01/22/19 19:31 67 17 112/60 95 01/22/19 16:00 98.1 F 73 18 121/71 93 L Intake and Output 01/23/19 01/23/19 01/23/19 06:59 14:59 22:59 Intake Total 744 Balance 744 Intake: Oral 744 Other: Voiding Method Toilet Toilet On physical examination, patient appears comfortable in no apparent distress. HEAD: Normocephalic, atraumatic. EYES: No scleral icterus. No conjunctival injection. MOUTH: No lesions, tongue midline. NECK: Trachea midline, no gross abnormalities. CHEST: Decreased air entry bilaterally. HEART: S1-S2 appreciated. ABDOMEN: Soft, obese. Bowel sounds are positive. No organomegaly. No guarding or rigidity. EXTREMITIES: No pedal edema. SKIN: No rashes, no jaundice. NEUROLOGIC: Alert and oriented to person. Results CBC & Chem 7: 01/22/19 02:00 01/23/19 11:07 Labs: Abnormal Lab Results - Last 24 Hours (Table) 01/23/19 Range/Units 11:07 Potassium 2.9 L (3.5-5.1) mmol/L Glucose 114 H (74-99) mg/dL Calcium 7.5 L (8.4-10.2) mg/dL Microbiology - Last 24 Hours (Table) 01/22/19 05:35 Urine Culture - Final Urine,Catheterized Comments: X-ray pelvis negative for dislocation or fracture. Assessment and Plan (1) Colitis Narrative/Plan: 83-year-old female with complaints of diarrhea in the subacute setting over the past 5 weeks prior to presentation. The patient had no improvement in symptoms with Imodium and Bentyl therapy and was reporting 5-10 loose bowel movements daily. Colonoscopy was performed on 01/16/19 with findings of erythema and friability in the mucosa of the proximal rectum and sigmoid with findings of colitis chronic active colitis on biopsies. History and findings are consistent with ulcerative colitis with infectious or ischemic etiology less likely given the evidence of chronic inflammation on biopsy. Current Visit: Yes Status: Acute Code(s): K52.9 - NONINFECTIVE GASTROENTERIT IS AND COLITIS, UNSPECIFIED SNOMED Code(s): 68315731 Plan: Supportive care Okay for low fiber diet Continue to monitor stool output Continue hydration and electrolyte replacement Patient will be started on Solu-Medrol 20 mg every 8 hours Patient will need follow-up with gastroenterology after discharge Thank you for allowing us to participate in care of this patient we will continue to follow
[2019-01-23] MEDS ORDERED: FAMOTIDINE 20 MG TAB PO SCH (21:00)
[2019-01-23 21:10] LABS: Magnesium 1.7 mg/dL (1.6-2.3); Potassium 3.5 mmol/L (3.5-5.1)
[2019-01-24] MEDS: SODIUM CHLORIDE 0.9% 1,000 ML IV SCH ×2 (07:37→12:33)
--- NOTE | 2019-01-24 07:39 | XR ---
EXAMINATION TYPE: XR chest 1V portable DATE OF EXAM: 01/24/2019 HISTORY: dyspnea. REFERENCE: Previous study dated 01/22/2019. FINDINGS: There is a moderate levoscoliosis. This may, in part, be positional. Heart size is upper limits of normal. There is mild vascular congestion without gavi edema. There is blunting of the left CP angle and I could not exclude a small left effusion. IMPRESSION: 1. BORDERLINE CARDIOMEGALY. 2. MILD VASCULAR CONGESTION. 3. I CANNOT EXCLUDE A SMALL, LEFT EFFUSION.
[2019-01-24 08:21] LABS: HCT 33.7 % (34.0-46.0); HGB 10.8 gm/dL (11.4-16.0); MCH 28.3 pg (25.0-35.0); MCV 88.6 fL (80.0-100.0); Mean Platelet Volume 7.5; Platelet Count 248 k/uL (150-450); RDW 15.2 % (11.5-15.5)
[2019-01-24] MEDS: methylPREDNISolone SOD SUCCI 40 MG/ML 1 ML VIAL IV SCH (08:27)
[2019-01-24] MEDS: DONEPEZIL 10 MG TAB PO SCH (08:28)
[2019-01-24] MEDS: HEPARIN SODIUM,PORCINE 5,000 UNIT/ML 1 ML VIAL SQ SCH (08:28)
[2019-01-24] MEDS: ATORVASTATIN 20 MG TAB PO SCH (08:28)
[2019-01-24] MEDS: DICYCLOMINE 20 MG TAB PO SCH ×2 (08:28→12:33)
[2019-01-24] MEDS: LEVOTHYROXINE 25 MCG TAB PO SCH (08:28)
[2019-01-24 08:36] LABS: Calcium 7.7 mg/dL (8.4-10.2); Potassium 4.3 mmol/L (3.5-5.1)
[2019-01-24] MEDS: VIT A,C & E-LUTEIN-MINERALS 1 EACH TAB PO SCH (10:11)
[2019-01-24] MEDS ORDERED: FUROSEMIDE 10 MG/ML 4 ML VIAL IV STA (10:46)
[2019-01-24 12:18] VITALS: BP 116/64; PULSE 70; RESP 18; TEMP 97.9
[2019-01-24] MEDS: CHOLECALCIFEROL 1,000 UNIT TAB PO SCH (12:33)
--- NOTE | 2019-01-24 12:36 | P.DS ---
Providers Date of admission: 01/23/19 07:13 Attending physician: Brady Harper Consults: 01/22/19 12:18 Consult Physician Urgent Consulting Provider: Selina Argueta Consult Reason/Comments: diarrhea anorexia Do you want consulting provider notified?: Yes Primary care physician: Brady Harper Hospital Course: 83-year-old pleasant female was admitted for syncopal episode probably secondary to intravascular depletion patient was having chronic diarrhea. Patient's creatinine is 1.4 patient is hyponatremic Lasix will be disc continued. Patient baseline creatinine appears to be around 1.4 though. Patient will be continued on IV fluids repeat the basic metabolic profile tomorrow I'm expecting some improvement in serum creatinine. Patient does have chronic kidney disease stage III. Patient's angiotensin receptor karen will be held as well. Patient does have history of chronic diarrhea had 2 episodes today C. diff will be obtained if C. diff is negative patient will be started on symptomatically treatment for diarrhea. I do not believe patient has UTI patient has asymptomatic bacteriuria antibiotics will be his continued 01/24/2019 Patient's chronic bradycardia appears to be secondary to chronic colitis for which her gastric body started on systemic steroids patient will be discharged on the stomach steroids with taper. Her diarrhea completely resolved at this time creatinine improved to 0.9 but the patient had some pulmonary edema because of which I'll give her a dose of Lasix. Her hypotension resolved Karen Will Be Discontinued and We'll Cut down the Dose of YOVANNY Inhibitor to Half. Her chest x-ray was reviewed PHYSICAL EXAMINATION: GENERAL: The patient is alert and oriented x3, not in any acute distress. Well developed, well nourished. HEENT: Pupils are round and equally reacting to light. EOMI. No scleral icterus. No conjunctival pallor. Normocephalic, atraumatic. No pharyngeal erythema. No thyromegaly. CARDIOVASCULAR: S1 and S2 present. No rubs, or gallops. Systolic murmur in aortic area PULMONARY: Chest is clear to auscultation, no wheezing or crackles. ABDOMEN: Soft, nontender, nondistended, normoactive bowel sounds. No palpable organomegaly. MUSCULOSKELETAL: No joint swelling or deformity. EXTREMITIES: No cyanosis, clubbing, or pedal edema. NEUROLOGICAL: Gross neurological examination did not reveal any focal deficits. SKIN: No rashes. For other chronic medical problems hospitalization course please refer to my progress note from yesterday Patient Condition at Discharge: Fair Plan - Discharge Summary Discharge Rx Participant: No New Discharge Prescriptions: New predniSONE 10 mg PO DAILY #60 tab Continue Atorvastatin [Lipitor] 20 mg PO DAILY Levothyroxine Sodium [Synthroid] 25 mcg PO QAM Furosemide 40 mg PO DAILY Aspirin 81 mg PO DAILY Cholecalciferol [Vitamin D3 (25 Mcg = 1000 Iu)] 1,000 unit PO DAILY@1200 Escitalopram [Lexapro] 20 mg PO SUWEFR Donepezil [Aricept] 10 mg PO BID Artificial Tears-Hypromellose [Artificial Tear Drops] 1 drops BOTH EYES HS Vit C/E/Zn/Coppr/Lutein/Zeaxan [Preservision Areds 2 Softgel] 2 cap PO DAILY Albuterol Inhaler [Ventolin Hfa Inhaler] 1 - 2 puff INHALATION RT-Q6H PRN PRN Reason: Shortness Of Breath Ensure 1 can PO BID Changed Dicyclomine [Bentyl] 20 mg PO QID PRN #0 PRN Reason: Diarrhea Losartan Potassium [Cozaar] 50 mg PO DAILY #0 Discontinued NIFEdipine [Nifedipine ER] 90 mg PO QAM Discharge Medication List Aspirin 81 mg PO DAILY 07/09/14 [History] Atorvastatin [Lipitor] 20 mg PO DAILY 07/09/14 [History] Furosemide 40 mg PO DAILY 07/09/14 [History] Levothyroxine Sodium [Synthroid] 25 mcg PO QAM 07/09/14 [History] Cholecalciferol [Vitamin D3 (25 Mcg = 1000 Iu)] 1,000 unit PO DAILY@1200 08/24/14 [History] Donepezil [Aricept] 10 mg PO BID 09/11/18 [History] Escitalopram [Lexapro] 20 mg PO SUWEFR 09/11/18 [History] Artificial Tears-Hypromellose [Artificial Tear Drops] 1 drops BOTH EYES HS 10/31/18 [History] Vit C/E/Zn/Coppr/Lutein/Zeaxan [Preservision Areds 2 Softgel] 2 cap PO DAILY 10/31/18 [History] Albuterol Inhaler [Ventolin Hfa Inhaler] 1 - 2 puff INHALATION RT-Q6H PRN 01/14/19 [History] Ensure 1 can PO BID 01/22/19 [History] Dicyclomine [Bentyl] 20 mg PO QID PRN #0 01/24/19 [Rx] Losartan Potassium [Cozaar] 50 mg PO DAILY #0 01/24/19 [Rx] predniSONE 10 mg PO DAILY #60 tab 01/24/19 [Rx] Follow up Appointment(s)/Referral(s): Brady Harper MD [Primary Care Provider] - 1-2 days Selina Argueta MD [STAFF PHYSICIAN] - 01/29/19 4:30 pm (patient to call office to verify appointment date and time) [facility], [NON-STAFF] - 1-2 Days Discharge Disposition: HOME WITH HOME HEALTH SERVICES
--- NOTE | 2019-01-24 16:58 | PN ---
PROGRESS NOTE DATE OF DICTATION: January 24, 2019 Patient is an 83-year-old pleasant white female, admitted to the hospital for syncope. She was being evaluated for chronic diarrhea for the last 3 months duration. She had a colonoscopy done on an outpatient basis about a week ago that showed evidence of mild diffuse colitis. Biopsy showed chronic active colitis most suggestive of inflammatory bowel disease. The patient was started on IV Solu-Medrol 20 mg q.8 hours yesterday. She is feeling much better today. She had only 1 bowel movement this morning. No bleeding. She denies any abdominal pain. No nausea, vomiting. PHYSICAL EXAMINATION: Appears comfortable, no apparent distress. Vital signs stable. Blood pressure 126/76, pulse rate 76, temperature 98.2. HEENT examination unremarkable. Conjunctivae pink. Sclerae anicteric. Oral cavity no lesions. NECK: No jugular venous distention or lymph node enlargement. Chest was clear to auscultation. HEART: Regular rate and rhythm. ABDOMEN: Soft. Bowel sounds are positive. No organomegaly. EXTREMITIES: No pedal edema. SKIN: No rashes. NEUROLOGIC: Alert and oriented x3. No focal deficits. LABS: WBC 9, hemoglobin 10.8, platelets 248. Basic metabolic panel is within normal limits. IMPRESSION: Newly diagnosed inflammatory bowel disease/ulcerative colitis. The patient has chronic diarrhea for the last 2 months. Recent colonoscopy done a week ago showed mild diffuse colitis involving the entire colon and biopsies revealed chronic active colitis on IV Solu-Medrol 20 q.8 started yesterday and feeling much better. RECOMMENDATIONS: 1. Advance diet as tolerated. 2. She can be discharged home today on oral prednisone 20 mg daily for 1 week and then taper by 5 mg every week. 3. She will be seen in the office next week. MMODL / IJN: [id number] /
== END 2019-01-24 13:11 | disposition home health service (06) | DRG 386 ==
LOC: EC 00:19 → 1SOBS 06:37 → OBSVTOIN 01-23 07:13
PROVIDERS: ADMIT Family Medicine; ATTEND Family Medicine
DX: K51.90 Ulcerative colitis, unspecified, without complications (principal); E44.0 Moderate protein-calorie malnutrition; E87.1 Hypo-osmolality and hyponatremia; E03.9 Hypothyroidism, unspecified; E78.00 Pure hypercholesterolemia, unspecified; E78.5 Hyperlipidemia, unspecified; F03.90 Unspecified dementia, unspecified severity, without behavioral disturbance, psychotic disturbance, mood disturbance, and anxiety; F32.9 Major depressive disorder, single episode, unspecified; H91.90 Unspecified hearing loss, unspecified ear; I12.9 Hypertensive chronic kidney disease with stage 1 through stage 4 chronic kidney disease, or unspecified chronic kidney disease; J44.9 Chronic obstructive pulmonary disease, unspecified; M19.90 Unspecified osteoarthritis, unspecified site; N18.3 Chronic kidney disease, stage 3 (moderate); W18.30XA Fall on same level, unspecified, initial encounter; Z79.82 Long term (current) use of aspirin; Z79.890 Hormone replacement therapy; Z79.899 Other long term (current) drug therapy; Z86.011 Personal history of benign neoplasm of the brain; Z87.891 Personal history of nicotine dependence; Z90.710 Acquired absence of both cervix and uterus; Z96.653 Presence of artificial knee joint, bilateral; E86.0 Dehydration; E87.6 Hypokalemia; E83.42 Hypomagnesemia
CPT/HCPCS: 36415; 70450; 71045; 72125; 72170; 80048; 80053; 81001; 83605; 83735; 84100; 84132; 84443; 84484; 85025; 85027; 85610; 85730; 87086; 87324; 93005; 94640; 94760; 96361; 96365; 96366; 99285